=== PATIENT | female | born 1985 | race African-American/Black ===

== ENCOUNTER 2022-09-06 15:51 | Emergency (ER) | payer BC ==
[~2022-09-06] VITALS: Ht 157.5 cm; Wt 63.6 kg
[2022-09-06 15:59] VITALS: BP 122/67
[2022-09-06] MEDS ORDERED: IBUPROFEN 600 MG TABLET PO ONE (17:15)
[2022-09-06] MEDS ORDERED: IBUP-1554 PO (18:41)
[2022-09-06] MEDS ORDERED: BACL10TA PO (18:41)
== END 2022-09-06 18:48 | disposition home or self-care (01) ==
LOC: EMS 15:58
DX: S13.4XXA Sprain of ligaments of cervical spine, initial encounter (principal); S39.012A Strain of muscle, fascia and tendon of lower back, initial encounter; S63.502A Unspecified sprain of left wrist, initial encounter; M62.838 Other muscle spasm; Z98.890 Other specified postprocedural states; V89.2XXA Person injured in unspecified motor-vehicle accident, traffic, initial encounter; Y93.89 Activity, other specified; Y92.89 Other specified places as the place of occurrence of the external cause; Y99.8 Other external cause status
CPT/HCPCS: 72040; 72070; 72100; 99284; 73110-TC; 73130-TC; Z7502; Z7610